=== PATIENT | male | born 1980 | race Caucasian/White ===

== ENCOUNTER 2020-12-25 11:01 | Outpatient (RCR) | payer OTHER, SELFPAY ==
[2020-12-25 11:05] VITALS: BMI 42.7
[2020-12-25 11:06] VITALS: BMI 42.7
== END 2021-03-24 07:06 | disposition home or self-care (01) ==
LOC: ANHDMC 11:01
PROVIDERS: PCP Family Medicine; Referring Provider Family Medicine; Visit Provider Family Medicine
DX: E78.1 Pure hyperglyceridemia (principal); Z71.3 Dietary counseling and surveillance
CPT/HCPCS: 97802

== ENCOUNTER → 2021-10-27 09:37 | Outpatient (CLI) | payer OTHER, SELFPAY ==
--- NOTE | ~2021-10-27 | XR_ITS ---
EXAMINATION: XR hip RT min 2V DATE: 10/27/2021 10:28 INDICATION: Right hip pain. TECHNIQUE: 2 views of right hip were obtained. COMPARISON: None. FINDINGS: Bone alignment is normal. No fracture. There is severe right hip osteoarthritis. IMPRESSION: 1. Severe right hip osteoarthritis. Reviewed, dictated and finalized at location A.
--- NOTE | ~2021-10-27 | XR_ITS ---
EXAM: XR lumbar spine 2-3V HISTORY: Low back pain COMPARISON: None. FINDINGS: Exam limited by oblique positioning in the lateral view and L5-S1 spot view. 5 intact lumba r-type vertebral bodies with intact pedicles. Partially visualized bowel gas pattern is normal. Multi level mild disc space narrowing and marginal osteophytosis. Multilevel facet arthropathy. Vertebral b liz heights and alignment are preserved. IMPRESSION: Multilevel degenerative disc disease and facet arthropathy. Reviewed, dictated and finalized at location K.
== END ==
PROVIDERS: PCP Family Medicine; Visit Provider Family Medicine
DX: M47.816 Spondylosis without myelopathy or radiculopathy, lumbar region (principal); M16.11 Unilateral primary osteoarthritis, right hip
CPT/HCPCS: 72100; 73502